=== PATIENT | male | born 1945 | race Caucasian/White ===

== ENCOUNTER 2017-09-13 04:45 | Inpatient (IN) | payer MEDICARE, MEDICAID ==
[~2017-09-13] VITALS: Ht 195.6 cm; Wt 76.4 kg
[2017-09-13] VITALS (25 sets, daily range): BP systolic 77–101; BP diastolic 50–69; Ht 195.6 cm; Wt 76.4 kg
[2017-09-13] MEDS ORDERED: ZYLOPRIM300 MG PO (05:02)
[2017-09-13] MEDS ORDERED: LANOXIN125 MCG PO (05:02)
[2017-09-13] MEDS ORDERED: OMEPRAZOLE20 M1 PO (05:02)
[2017-09-13] MEDS ORDERED: KLOR-CON 1010 MEQ (05:03)
[2017-09-13] MEDS ORDERED: LIPITOR10 MG PO (05:03)
[2017-09-13] MEDS ORDERED: PRINIVIL10 MG PO (05:04)
[2017-09-13] MEDS ORDERED: CORDARONE200 MG PO (05:05)
[2017-09-13] MEDS ORDERED: ATIVAN0.5 MG PO (05:05)
[2017-09-13] MEDS ORDERED: CLARITIN5 MG/5 ML PO (06:00)
[2017-09-13 06:02] LABS: BASOPHILS 0.6 % (0-2); HEMATOCRIT 26.2 % (42.0-54.0); IMMATURE GRANULOCYTES 6.3 % (0-5); LYMPHOCYTES 26.7 % (15-50); MCH 28.9 pg (26.0-34.0); MCHC 30.5 g/dL (31.0-37.0); MCV 94.6 fL (80.0-100.0); MEAN PLATELET VOLUME 9.2 fL (7.4-10.4); MONOCYTES 6.3 % (2-11); NEUTROPHILS 59.1 % (40-80); PLATELET COUNT 82 10x3/uL (130-400); RBC 2.77 10x6/uL (4.20-6.10); RDW 18.6 % (11.5-14.5); WBC 6.2 10x3/uL (4.8-10.8)
[2017-09-13 07:39] LABS: PLATELET ESTIMATE DECREASED
[2017-09-14] VITALS (19 sets, daily range): BP systolic 85–120; BP diastolic 36–81
[2017-09-14 04:20] LABS: BASOPHILS 0.6 % (0-2); EOSINOPHILS 1.6 % (0-7); HEMATOCRIT 29.8 % (42.0-54.0); HEMOGLOBIN 9.3 g/dL (13.5-17.5); IMMATURE GRANULOCYTES 5.7 % (0-5); MCH 28.2 pg (26.0-34.0); MCHC 31.2 g/dL (31.0-37.0); MEAN PLATELET VOLUME 9.7 fL (7.4-10.4); MONOCYTES 7.7 % (2-11); NEUTROPHILS 54.4 % (40-80); PLATELET COUNT 67 10x3/uL (130-400); RDW 20.2 % (11.5-14.5); WBC 5.1 10x3/uL (4.8-10.8)
[2017-09-14 04:40] LABS: MCV 90.3 fL (80.0-100.0)
[2017-09-14 04:47] LABS: CALC OSMOLALITY 276 mosm/kg (275-300); CALCIUM 8.5 mg/dL (8.5-10.1); CARBON DIOXIDE 28.3 mmol/L (21.0-32.0); CHLORIDE - SERUM 103 mmol/L (98-107); CREATININE - SERUM 0.8 mg/dL (0.6-1.3); GLUCOSE 95 mg/dL (74-106); POTASSIUM - SERUM 4.3 mmol/L (3.5-5.1); SODIUM 137 mmol/L (136-145); UREA NITROGEN 20 mg/dL (7-18); eGFR NON AFRICAN AMERICAN > 90 mL/min (90-120)
[2017-09-15] VITALS (10 sets, daily range): BP systolic 92–122; BP diastolic 41–75
[2017-09-15 05:06] LABS: BASOPHILS 0.4 % (0-2); EOSINOPHILS 1.5 % (0-7); HEMATOCRIT 27.9 % (42.0-54.0); HEMOGLOBIN 8.8 g/dL (13.5-17.5); IMMATURE GRANULOCYTES 5.9 % (0-5); LYMPHOCYTES 32.4 % (15-50); MCH 28.3 pg (26.0-34.0); MCHC 31.5 g/dL (31.0-37.0); MCV 89.7 fL (80.0-100.0); MEAN PLATELET VOLUME 9.6 fL (7.4-10.4); MONOCYTES 6.3 % (2-11); NEUTROPHILS 53.5 % (40-80); PLATELET COUNT 67 10x3/uL (130-400); RBC 3.11 10x6/uL (4.20-6.10); RDW 19.6 % (11.5-14.5); WBC 5.4 10x3/uL (4.8-10.8)
[2017-09-15 05:40] LABS: CALC OSMOLALITY 276 mosm/kg (275-300); CALCIUM 8.4 mg/dL (8.5-10.1); CARBON DIOXIDE 26.1 mmol/L (21.0-32.0); CHLORIDE - SERUM 103 mmol/L (98-107); CREATININE - SERUM 0.9 mg/dL (0.6-1.3); GLUCOSE 97 mg/dL (74-106); POTASSIUM - SERUM 3.8 mmol/L (3.5-5.1); SODIUM 137 mmol/L (136-145); UREA NITROGEN 21 mg/dL (7-18); eGFR NON AFRICAN AMERICAN 88 mL/min (90-120)
[2017-09-15] MEDS ORDERED: CARAFATE1 G/10 ML PO ×2 (14:40→14:42)
[2017-09-15] MEDS ORDERED: PROTONIX40 MG PO (14:41)
== END 2017-09-15 17:47 | disposition home health service (06) | DRG 378 ==
LOC: D.ER 04:45 → D.ICU 05:11 → D.MS 09-15 07:00
PROVIDERS: Family Medicine; Internal Medicine Gastroenterology; Internal Medicine Nephrology
PROC: 0DJ08ZZ Inspection of Upper Intestinal Tract, Via Natural or Artificial Opening Endoscopic (ICD-10-PCS; principal; 2017-09-13 16:00)
DX: K92.2 Gastrointestinal hemorrhage, unspecified (principal); D62 Acute posthemorrhagic anemia; C79.52 Secondary malignant neoplasm of bone marrow; C61 Malignant neoplasm of prostate; K22.8 Other specified diseases of esophagus; D63.0 Anemia in neoplastic disease; I10 Essential (primary) hypertension; I95.9 Hypotension, unspecified; J43.9 Emphysema, unspecified; I48.2 Chronic atrial fibrillation; Z87.891 Personal history of nicotine dependence